=== PATIENT | male | born 1955 ===

== ENCOUNTER 2017-10-13 17:44 | Emergency (ER) | payer MEDICAID ==
[2017-10-13 18:09] VITALS: TEMP 98
[2017-10-13] MEDS ORDERED: TDAP Vaccine 0.5 mL Syr IM ONE (18:55)
--- NOTE | 2017-10-13 18:58 | ED PDOC ---
Arrival/HPI - General Chief Complaint: Trauma Time Seen by Provider: 10/13/17 18:54 Historian: Patient - History of Present Illness Narrative History of Present Illness (Text): 10/13/17 18:55 This 62 yo male presents to this ED c/o left great toe injury x DIRECTOR OF ONCOLOGY. Patient stated while carrying an old heavy TV, accidentally TV dropped on his toe. Denies other complains. Time/Duration: Prior to Arrival Quality: Aching Context: Home Past Medical History - Provider Review Nursing Documentation Reviewed: Yes - Cardiac Hx Cardiac Disorders: Yes Hx Hypertension: Yes - Pulmonary Hx Respiratory Disorders: Yes Hx Asthma: Yes - Neurological Hx Neurological Disorder: No - HEENT Hx HEENT Disorder: No - Renal Hx Renal Disorder: No - Endocrine/Metabolic Hx Endocrine Disorders: No - Hematological/Oncological Hx Blood Disorders: No - Integumentary Hx Dermatological Disorder: No - Musculoskeletal/Rheumatological Hx Musculoskeletal Disorders: No - Gastrointestinal Hx Gastrointestinal Disorders: No - Genitourinary/Gynecological Hx Genitourinary Disorders: No - Psychiatric Hx Psychophysiologic Disorder: No Hx Substance Use: No Family/Social History - Physician Review Nursing Documentation Reviewed: Yes Family/Social History: Other (noncontributory) Smoking Status: Never Smoked Hx Alcohol Use: Yes Frequency of alcohol use: Socially Hx Substance Use: No Allergies/Home Meds Allergies/Adverse Reactions: Allergies No Known Allergies Allergy (Verified 10/13/17 18:09) Home Medications: Home Meds Medication Instructions Recorded Confirmed Gabapentin [Neurontin] 100 mg PO DAILY 10/13/17 10/13/17 Review of Systems - Review of Systems Constitutional: Normal. absent: Fatigue, Weight Change, Fevers, Night Sweats Eyes: Normal ENT: Normal Respiratory: Normal Cardiovascular: Normal Gastrointestinal: Normal Genitourinary Male: Normal Musculoskeletal: Other (toe trauma) Skin: Normal Neurological: Normal Endocrine: Normal Hemo/Lymphatic: Normal Psychiatric: Normal Physical Exam Vital Signs Temp Pulse Resp BP Pulse Ox 10/13/17 18:03 98.0 F 91 H 17 109/74 94 L Temperature: Afebrile Blood Pressure: Normal Pulse: Regular Respiratory Rate: Normal Appearance: Positive for: Well-Appearing, Non-Toxic, Comfortable Pain Distress: None Mental Status: Positive for: Alert and Oriented X 3 - Systems Exam Head: Present: Atraumatic, Normocephalic Mouth: Present: Moist Mucous Membranes Neck: Present: Normal Range of Motion Upper Extremity: Present: Normal Inspection, Normal ROM Lower Extremity: Present: NORMAL PULSES, Neurovascularly Intact, Capillary Refill < 2 s, Other ((+) left great toe swelling, bleeding has stopped, with subungual hematoma.). No: Edema, CALF TENDERNESS Neurological: Present: GCS=15, CN II-XII Intact, Speech Normal Skin: Present: Warm, Dry, Normal Color. No: Rashes Psychiatric: Present: Alert, Oriented x 3, Normal Insight, Normal Concentration Medical Decision Making ED Course and Treatment: 10/13/17 21:49 Re-evaluation. Patient feels better. Discussed results and plan with patient who expresses understanding. All questions answered and there is agreement with the plan to discharge home with instructions. Patient stable for discharge. Return if symptoms persist or worsen. Re-evaluation Time: 21:49 Reassessment Condition: Re-examined, Improved - RAD Interpretation Narrative RAD Interpretations (Text): 10/13/17 21:50 Toe x-rays: (+) fx phalanx Radiology Orders: 10/13/17 18:54 FOOT LEFT GREAT TOE ROUTINE [RAD] Stat - Medication Orders Current Medication Orders: Discontinued Medications Tetanus/Reduced Diphtheria/Acell Pertussis (Boostrix Vaccine Inj) 0.5 ml IM .ONCE ONE Stop: 10/13/17 18:56 Last Admin: 10/13/17 20:13 Dose: 0.5 ml Immunization Registry Document 10/13/17 20:13 NE (Rec: 10/13/17 20:13 NE [id number]) Immunization Registry Consent Date 10/13/17 - Procedure PROCEDURE NOTE (Text): 10/13/17 21:50 e Disposition/Present on Arrival - Present on Arrival Any Indicators Present on Arrival: No History of DVT/PE: No History of Uncontrolled Diabetes: No Urinary Catheter: No History of Decub. Ulcer: No History Surgical Site Infection Following: None - Disposition Have Diagnosis and Disposition been Completed?: Yes Diagnosis: Open fracture of toe of left foot Disposition: HOME/ ROUTINE Disposition Time: 21:51 Patient Plan: Discharge Condition: GOOD Discharge Instructions (ExitCare): Toe Fracture (ED) Additional Instructions: Call non ferrous material handler for follow up visit in 1-2 days. Take medication as instructed. Return to emergency if wound becomes infected. See your private doctor in 2 days for wound recheck Prescriptions: Amoxicillin/Clavulanate [Augmentin 875 MG-125 MG] 1 tab PO BID #20 tab oxyCODONE/Acetaminophen [Percocet 5/325 mg Tab] 1 ea PO TID PRN #12 tab PRN Reason: Pain, Severe (8-10) Referrals: Kulwinder Chávez APN [Primary Care Provider] - Follow up with primary Maddi Hamm DPM [Staff Provider] - Follow up with primary Forms: [employer] (Lebanese)
[2017-10-13] MEDS ORDERED: Amoxicillin-Clav 875-125 mg Tab PO STA (21:49)
[2017-10-13 22:15] VITALS: BP 112/87; PULSE 75; RESP 16; O2SAT 97
--- NOTE | 2017-10-14 09:46 | RAD ---
PROCEDURE: Radiographs of the left great toe. TECHNIQUE:: AP radiograph of the left foot, with oblique and lateral view of the left great toe. COMPARISON: None. FINDINGS: BONES: There is an acute mildly displaced fracture in the tip of the distal phalanx of the great toe. Bone alignment and mineralization are normal. JOINTS: Normal. SOFT TISSUES: There is soft tissue swelling in the great toe. No radiopaque foreign body. OTHER FINDINGS: None. IMPRESSION: Acute mildly displaced fracture in the tip of the distal phalanx of the great toe with surrounding soft tissue swelling.
== END 2017-10-13 22:22 | disposition home or self-care (01) ==
LOC: ED 17:44
DX: S92.422B Displaced fracture of distal phalanx of left great toe, initial encounter for open fracture (principal); W20.8XXA Other cause of strike by thrown, projected or falling object, initial encounter; Y92.009 Unspecified place in unspecified non-institutional (private) residence as the place of occurrence of the external cause; I10 Essential (primary) hypertension; Z23 Encounter for immunization

== ENCOUNTER 2018-03-29 06:36 | Emergency (ER) | payer MEDICAID ==
[2018-03-29 07:01] VITALS: BP 124/86; TEMP 98.1
[2018-03-29] MEDS ORDERED: Albuterol-Ipratrop 3 mg / 0.5 (3 ml) UD IH STA (07:24)
--- NOTE | 2018-03-29 08:20 | ED PDOC ---
Arrival/HPI - History of Present Illness Time/Duration: > week Symptom Course: Unchanged Activities at Onset: Rest Context: Home <Amanda Fisher - Last Filed: 03/29/18 08:13> <Carlos Villatoro DO - Last Filed: 03/29/18 16:40> - General Chief Complaint: ENT Problem Time Seen by Provider: 03/29/18 07:13 - History of Present Illness Narrative History of Present Illness (Text): 03/29/18 08:14 This is a 62 year old male with PMH of hypertension and asthma on albuterol presenting to the ER for nasal congestion x 1 week. Patient admits to associated itchy eyes, runny nose, and unchanged nasal congestion despite use of fluticasone puff use for one week. Patient states his asthma is typically controlled with albuterol, but his current symptoms have not improved. Patient denies chest pain, SOB, fevers, headaches, nausea, vomiting and abdominal pain. (Amanda Fisher) Past Medical History - Provider Review Nursing Documentation Reviewed: Yes - Cardiac Hx Cardiac Disorders: Yes Hx Hypertension: Yes - Pulmonary Hx Respiratory Disorders: Yes Hx Asthma: Yes - Neurological Hx Neurological Disorder: No - HEENT Hx HEENT Disorder: No - Renal Hx Renal Disorder: No - Endocrine/Metabolic Hx Endocrine Disorders: No - Hematological/Oncological Hx Blood Disorders: No - Integumentary Hx Dermatological Disorder: No - Musculoskeletal/Rheumatological Hx Musculoskeletal Disorders: No - Gastrointestinal Hx Gastrointestinal Disorders: No - Genitourinary/Gynecological Hx Genitourinary Disorders: No - Psychiatric Hx Psychophysiologic Disorder: No Hx Substance Use: No <Amanda Fisher - Last Filed: 03/29/18 08:13> Family/Social History - Physician Review Nursing Documentation Reviewed: Yes Family/Social History: Unknown Family HX Smoking Status: Never Smoked Hx Alcohol Use: Yes Hx Substance Use: No <Amanda Fisher - Last Filed: 03/29/18 08:13> Allergies/Home Meds <Amanda Fisher - Last Filed: 03/29/18 08:13> <Carlos Villatoro DO - Last Filed: 03/29/18 16:40> Allergies/Adverse Reactions: Allergies seafood Allergy (Uncoded 03/29/18 07:11) ANAPHYLAXIS Home Medications: Home Meds Medication Instructions Recorded Confirmed Hydrochlorothiazide [Microzide] 25 mg PO DAILY 03/29/18 03/29/18 Lisinopril [Zestril] 10 mg PO DAILY 03/29/18 03/29/18 Review of Systems - Physician Review All systems were reviewed & negative as marked: Yes - Review of Systems Constitutional: Normal Eyes: Normal. absent: Vision Changes ENT: Normal, Rhinorrhea. absent: Hearing Changes, Sore Throat, Epistaxis Respiratory: Normal, Wheezing. absent: SOB, Cough Cardiovascular: Normal. absent: Chest Pain, Palpitations Gastrointestinal: Normal. absent: Abdominal Pain Genitourinary Male: Normal Musculoskeletal: Normal Skin: Normal Neurological: Normal Psychiatric: Normal <Amanda Fisher - Last Filed: 03/29/18 08:13> Physical Exam Vital Signs Reviewed: Yes Temperature: Afebrile Blood Pressure: Normal Pulse: Regular Respiratory Rate: Normal Appearance: Positive for: Well-Appearing, Non-Toxic, Comfortable Pain Distress: None Mental Status: Positive for: Alert and Oriented X 3 - Systems Exam Head: Present: Atraumatic, Normocephalic Pupils: Present: PERRL Extroacular Muscles: Present: EOMI Conjunctiva: Present: Normal Mouth: Present: Moist Mucous Membranes Nose (Internal): Present: Rhinorrhea. No: Purulent Mucous, Epistaxis Neck: Present: Normal Range of Motion Respiratory/Chest: Present: Good Air Exchange, Wheezes. No: Respiratory Distress, Accessory Muscle Use, Tachypneic Cardiovascular: Present: Regular Rate and Rhythm, Normal S1, S2. No: Murmurs Abdomen: No: Tenderness, Distention, Peritoneal Signs Back: Present: Normal Inspection Upper Extremity: Present: Normal Inspection. No: Cyanosis, Edema Lower Extremity: Present: Normal Inspection. No: Edema Neurological: Present: Speech Normal, Motor Func Grossly Intact, Normal Sensory Function Skin: Present: Warm, Dry, Normal Color. No: Rashes Psychiatric: Present: Alert, Oriented x 3, Normal Insight, Normal Concentration <Amanda Fisher - Last Filed: 03/29/18 08:13> <Carlos Villatoro DO - Last Filed: 03/29/18 16:40> Vital Signs Temp Pulse Resp BP Pulse Ox 03/29/18 08:36 84 18 97 03/29/18 06:48 98.1 F 88 17 124/86 98 Medical Decision Making <Amanda Fisher - Last Filed: 03/29/18 08:13> <Carlos Villatoro DO - Last Filed: 03/29/18 16:40> ED Course and Treatment: 03/29/18 08:22 This is a 62 year old male with PMH of hypertension and asthma presenting to the ER for one week history nasal congestion. Differential: seasonal allergies vs asthma Plan: Duonebs Progress: Vitals are stable at this time, patient's symptoms are improved with duonebs. ( Amanda Fisher) A 62 year old male with nasal congestion. In agreement with resident note, which includes further HPI details. Patient was seen and evaluated with resident , came up with plan and treatment together. (Carlos Villatoro DO) - Medication Orders Current Medication Orders: Discontinued Medications Albuterol/Ipratropium (Duoneb 3 Mg/0.5 Mg (3 Ml) Ud) 3 ml IH STAT STA Stop: 03/29/18 07:25 Last Admin: 03/29/18 07:35 Dose: 3 ml - PA / APARTMENT MAINTENANCE / Resident Statement / has reviewed & agrees with the documentation as recorded. MD/ has examined the patient and agrees with the treatment plan. <Amanda Fisher - Last Filed: 03/29/18 08:13> - Scribe Statement The provider has reviewed the documentation as recorded by the Scribe <Carlos Villatoro DO - Last Filed: 03/29/18 16:40> - Scribe Statement Pia Fink Provider Scribe Attestation: All medical record entries made by the Scribe were at my direction and personally dictated by me. I have reviewed the chart and agree that the record accurately reflects my personal performance of the history, physical exam, medical decision making, and the department course for this patient. I have also personally directed, reviewed, and agree with the discharge instructions and disposition. (Carlos Villatoro DO) Disposition/Present on Arrival - Present on Arrival Any Indicators Present on Arrival: No History of DVT/PE: No History of Uncontrolled Diabetes: No Urinary Catheter: No History of Decub. Ulcer: No History Surgical Site Infection Following: None - Disposition Have Diagnosis and Disposition been Completed?: Yes Disposition Time: 08:40 <Amanda Fisher - Last Filed: 07/10/18 08:13> - Disposition Disposition Time: 07:20 <Carlos Villatoro DO - Last Filed: 03/29/18 16:40> - Disposition Diagnosis: Asthma, Seasonal allergies Disposition: HOME/ ROUTINE Condition: IMPROVED Discharge Instructions (ExitCare): Seasonal Allergies in Adults, Asthma, Adult (DC) Additional Instructions: [facility], thank you for letting us take care of you today. Your provider was Carlos Villatoro DO and you were treated for nose problem. The emergency medical care you received today was directed at your acute symptoms. If you were prescribed any medication, please fill it and take as directed. It may take several days for your symptoms to resolve. Return to the Emergency Department if your symptoms worsen, do not improve, or if you have any other problems. Please contact your doctor or call one of the physicians/clinics you have been referred to that are listed on the Patient Visit Information form that is included in your discharge packet. Bring any paperwork you were given at discharge with you along with any medications you are taking to your follow up visit. Our treatment cannot replace ongoing medical care by a primary care provider outside of the emergency department. Thank you for allowing the [facility] team to be part of your care today. Follow up with your primary care doctor in 2-3 days for re-evaluation and further management. Prescriptions: Cetirizine HCl [Zyrtec] 10 mg PO DAILY #30 capsule Fluticasone Propionate [Flovent Hfa] 2 puff IH BID #1 unit Referrals: Kulwinder Chávez APN [Primary Care Provider] - Follow up with primary Forms: [employer] ([place] Citizen)
[2018-03-29 08:38] VITALS: PULSE 84; RESP 18; O2SAT 97
== END 2018-03-29 08:10 | disposition home or self-care (01) ==
LOC: ED 06:36
DX: J45.909 Unspecified asthma, uncomplicated (principal); J30.2 Other seasonal allergic rhinitis; I10 Essential (primary) hypertension

== ENCOUNTER 2018-08-28 06:41 | Emergency (ER) | payer MEDICAID ==
[2018-08-28 06:52] VITALS: BMI 28.1
[2018-08-28 06:54] VITALS: RESP 18
[2018-08-28] MEDS ORDERED: Albuterol 0.5% Inhal Sol (2.5 mg/0.5 ml) UD IH STA (07:12)
--- NOTE | 2018-08-28 07:24 | ED PDOC ---
Arrival/HPI - General Chief Complaint: Cough, Cold, Congestion Time Seen by Provider: 08/28/18 07:00 Historian: Patient - History of Present Illness Narrative History of Present Illness (Text): 08/28/18 07:17 63 yr old male w/ hx of hypertension, asthma p/w nasal congestion, and wheezing / chest congestion. Pt notes nasal congestion 2/2 polyp for 3-4 months and chest congestion / wheezing x3-4d. No prior hx of admission or intubation for asthma. Pt notes current symptoms feels like his previous asthma exacerbation. He notes that he is scheduled for polyp surgery on sep 15 at [place]. He denies any sinus pressure or pain. No change in phonation. No dysphagai or odynophagia. No rash. No chest pressure. No dyspnea on exertion. No orthopnea or PND. No hx of blood clots. No leg swelling. No new medications. No recent ABX. No fever, chills or night sweats No nausea or vomiting No abdominal pain No dark or bloody stool No urinary complaints Past Medical History - Infectious Disease Hx of Infectious Diseases: None - Cardiac Hx Cardiac Disorders: Yes Hx Hypertension: Yes - Pulmonary Hx Respiratory Disorders: Yes Hx Asthma: Yes - Neurological Hx Neurological Disorder: No - HEENT Hx HEENT Disorder: No - Renal Hx Renal Disorder: No - Endocrine/Metabolic Hx Endocrine Disorders: No - Hematological/Oncological Hx Blood Disorders: No - Integumentary Hx Dermatological Disorder: No - Musculoskeletal/Rheumatological Hx Musculoskeletal Disorders: No - Gastrointestinal Hx Gastrointestinal Disorders: No - Genitourinary/Gynecological Hx Genitourinary Disorders: No - Psychiatric Hx Psychophysiologic Disorder: No Hx Substance Use: No Family/Social History Family/Social History: Unknown Family HX Smoking Status: Never Smoked Hx Alcohol Use: Yes Hx Substance Use: No Allergies/Home Meds Allergies/Adverse Reactions: Allergies seafood Allergy (Uncoded 03/29/18 07:11) ANAPHYLAXIS Home Medications: Home Meds Medication Instructions Recorded Confirmed Hydrochlorothiazide [Microzide] 25 mg PO DAILY 03/29/18 03/29/18 Lisinopril [Zestril] 10 mg PO DAILY 03/29/18 03/29/18 Review of Systems - Review of Systems Constitutional: Normal. absent: Fatigue Eyes: Normal. absent: Vision Changes ENT: Sore Throat, Rhinorrhea. absent: Hearing Changes, Tinnitus, TMJ Pain, Voice Changes, Epistaxis, Sinus Congestion Respiratory: SOB, Wheezing. absent: Cough, Sputum Cardiovascular: Normal. absent: Chest Pain, Palpitations, Edema, Orthopnea Gastrointestinal: Normal. absent: Abdominal Pain Genitourinary Male: Normal. absent: Dysuria, Frequency Musculoskeletal: absent: Arthralgias, Back Pain Skin: absent: Rash, Pruritis Neurological: absent: Headache, Dizziness Endocrine: absent: Diaphoresis, Polyuria Psychiatric: absent: Anxiety, Depression Physical Exam Vital Signs Temp Pulse Resp BP Pulse Ox 08/28/18 06:52 98.8 F 83 18 138/99 H 96 Temperature: Afebrile Blood Pressure: Hypertensive Pulse: Regular Respiratory Rate: Normal Appearance: Positive for: Well-Appearing Pain Distress: None Mental Status: Positive for: Alert and Oriented X 3 - Systems Exam Head: Present: Atraumatic, Normocephalic Pupils: Present: PERRL Extroacular Muscles: Present: EOMI Conjunctiva: Present: Normal Ears: Present: Normal Mouth: Present: Moist Mucous Membranes Pharnyx: Present: Normal. No: ERYTHEMA, EXUDATE Nose (External): Present: Atraumatic Nose (Internal): Present: No Active Bleeding, Clear Mucous, Rhinorrhea. No: Septal Deviation, Septal Hematoma Neck: Present: Normal Range of Motion. No: Meningeal Signs, MIDLINE TENDERNESS Respiratory/Chest: Present: Good Air Exchange, Wheezes (mild, at bases). No: Respiratory Distress, Accessory Muscle Use, Decreased Breath Sounds, Rales, Retracting, Rhonchi, Tachypneic Cardiovascular: Present: Regular Rate and Rhythm, Normal S1, S2, Peripheal Pulses Present. No: Murmurs, Tachycardic, Bradycardic, Rub, Gallop Abdomen: No: Tenderness, Distention Back: Present: Normal Inspection. No: CVA Tenderness Upper Extremity: Present: Normal Inspection, Normal ROM, NORMAL PULSES, Capillary Refill < 2s. No: Cyanosis, Edema Lower Extremity: Present: Normal Inspection, NORMAL PULSES, Normal ROM, Capillary Refill < 2 s. No: Edema, CALF TENDERNESS Neurological: Present: GCS=15, CN II-XII Intact, Speech Normal Skin: Present: Warm, Dry Psychiatric: Present: Alert, Oriented x 3, Normal Insight, Normal Affect Medical Decision Making ED Course and Treatment: 08/28/18 07:27 Well appearing 63 yr old male w/ hx of asthma, nasal polyp p/w chest and nasal congestion. No sinus pressure on exam. Noted R polyp, No septal hematoma. No abscess or fluctuant mass noted in nasal passage. Lungs with mild wheezes. Likely asthma exacerbation vs PNA vs bronchitis. Will seek imaging and labs. EK, NSR, no stemi 08/28/18 09:19 XR unremarkable labs largely unremarkable troponin negative Likely Asthma exacerbation w/ possible bronchitis LS imroved: CTA b/l no wheezes on exam. Pt in NAD noted improvement as well will d/c home with abx, asthma rx, follow up and return indications. Pt is agreeable to plan. - Lab Interpretations I have reviewed the lab results: Yes - RAD Interpretation Radiology Orders: 08/28/18 07:12 CHEST TWO VIEWS (PA/LAT) [RAD] Stat - Medication Orders Current Medication Orders: Albuterol Sulfate (Albuterol 0.5% Inhal Susi (2.5 Mg/0.5 Ml) Ud) 2.5 mg IH STAT STA Stop: 08/28/18 07:13 Methylprednisolone (Solu-Medrol) 125 mg IVP STAT STA Stop: 08/28/18 07:14 Disposition/Present on Arrival - Present on Arrival Any Indicators Present on Arrival: No History of DVT/PE: No History of Uncontrolled Diabetes: No Urinary Catheter: No History of Decub. Ulcer: No History Surgical Site Infection Following: None - Disposition Have Diagnosis and Disposition been Completed?: Yes Diagnosis: Asthma, Bronchitis Disposition: HOME/ ROUTINE Disposition Time: 09:21 Condition: GOOD Discharge Instructions (ExitCare): Acute Bronchitis, Asthma, Adult (DC) Additional Instructions: [facility], thank you for letting us take care of you today. Your provider was Mike Velasquez and you were treated for CHEST PAIN/TIGHTENING. The emergency medical care you received today was directed at your acute symptoms. If you were prescribed any medication, please fill it and take as directed. It may take several days for your symptoms to resolve. Return to the Emergency Department if your symptoms worsen, do not improve, or if you have any other problems. Please contact your doctor or call one of the physicians/clinics you have been referred to that are listed on the Patient Visit Information form that is included in your discharge packet. Bring any paperwork you were given at discharge with you along with any medications you are taking to your follow up visit. Our treatment cannot replace ongoing medical care by a primary care provider outside of the emergency department. Thank you for [facility] the [facility] to be part of your care today. If you had an X-Ray or CT scan: A Radiologist will review the ED reading if any change in treatment is needed we will contact you. If you had a blood, urine, or wound culture: It will take several days for the results, if any change in treatment is needed we will contact you. If you had an STI test: It will take 48 hours for the results. Please call after 1 week if you have not heard back. Prescriptions: Albuterol HFA [Ventolin HFA 90 mcg/actuation (8 g)] 1 puff IH Q6H PRN 90 Days #1 inhaler PRN Reason: Shortness Of Breath Azithromycin [Z-Juan Luis] 250 mg PO DAILY #6 tab Prednisone [Deltasone] 40 mg PO DAILY 5 Days #10 tablet Referrals: [facility] [[place]] - Follow up with primary [employer] Erendira Pappas [Outside] - Follow up with primary Richy Fulton MD [Staff Provider] - Follow up with primary Forms: [employer] ([place])
[2018-08-28 07:55] LABS: BASO # 0.05 K/mm3 (0.0-2.0); BASO % 0.7 % (0.0-3.0); EOS # 0.8 (0.0-0.7); EOS % 10.3 % (1.5-5.0); GRAN % 66.5 % (50.0-68.0); LYMPH # 1.2 (1.2-3.4); LYMPH % 16.5 % (22.0-35.0); MEAN CELL VOLUME 86.7 fl (80.0-105.0); MEAN CORPUSCULAR HEMOGLOBIN 29.5 pg (25.0-35.0); MEAN PLATELET VOLUME 9.9 fl (7.0-11.0); MONO # 0.5 (0.1-0.6); RBC 4.75 10^6/uL (3.5-6.1); RED CELL DISTRIBUTION WIDTH 12.5 % (11.5-14.5); WHITE BLOOD COUNT 7.5 10^3/uL (4.5-11.0)
[2018-08-28 08:31] LABS: ALBUMIN 3.7 g/dL (3.0-4.8); ALT/SGPT 25 U/L (7-56); AST/SGOT 24 U/L (17-59); BLOOD UREA NITROGEN 19 mg/dL (7-21); CALCIUM 9.1 mg/dL (8.4-10.5); GFR NON-AFRICAN AMERICAN > 60
[2018-08-28 08:35] LABS: INFLUENZA A B NEGATIVE FOR FLU A/B (NEGATIVE)
--- NOTE | 2018-08-28 08:39 | CARD ---
APPROVED REPORT Date of service: 08/28/2018 EKG Measurement Heart [id number] <Conclusion> Normal sinus rhythm Left axis deviation Incomplete right bundle branch block Abnormal ECG
[2018-08-28 08:40] LABS: TROPONIN I < 0.01 ng/mL
[2018-08-28] MEDS ORDERED: Albuterol-Ipratrop 3 mg / 0.5 (3 ml) UD IH STA (08:48)
[2018-08-28 09:42] VITALS: BP 123/59; PULSE 76; TEMP 98; O2SAT 99
--- NOTE | 2018-08-28 09:48 | RAD ---
Date of service: 08/28/2018 HISTORY: chest congestion COMPARISON: No prior. TECHNIQUE: Chest PA and lateral FINDINGS: LUNGS: No active pulmonary disease. PLEURA: No significant pleural effusion identified. No pneumothorax apparent. CARDIOVASCULAR: No aortic atherosclerotic calcification present. Normal cardiac size. No pulmonary vascular congestion. OSSEOUS STRUCTURES: No significant abnormalities. VISUALIZED UPPER ABDOMEN: Normal. OTHER FINDINGS: None. IMPRESSION: No active disease.
== END 2018-08-28 09:40 | disposition home or self-care (01) ==
LOC: ED 06:41
DX: J45.909 Unspecified asthma, uncomplicated (principal); I10 Essential (primary) hypertension
CPT/HCPCS: 71046; 80053; 84484; 85025; 87070; 87430; 87804; 93005; 94640; 96374; 99283; J2930

== ENCOUNTER 2019-02-02 05:57 | Observation (INO) | payer MEDICAID ==
--- NOTE | 2019-02-02 06:07 | ED PDOC ---
Arrival/HPI - General Time Seen by Provider: 02/02/19 06:00 Historian: Patient - History of Present Illness Narrative History of Present Illness (Text): 02/02/19 06:04 Noe Jamison is a 63 year old male, whose past medical history includes asthma and hypertension, who presents to the ED complaining of shortness of breath. Patient reports associated wheezing and back pain. Patient states symptoms are consistent with his usual asthma symptoms. Patient denies any tobacco use, fever, chills, chest pain, nausea, vomiting, neck pain, headache, dizziness, or any other complaints. Symptom Onset: Gradual Symptom Course: Unchanged Activities at Onset: Light Context: Home Past Medical History - Provider Review Nursing Documentation Reviewed: Yes - Infectious Disease Hx of Infectious Diseases: None - Cardiac Hx Cardiac Disorders: Yes Hx Hypertension: Yes - Pulmonary Hx Respiratory Disorders: Yes Hx Asthma: Yes - Neurological Hx Neurological Disorder: No - HEENT Hx HEENT Disorder: No - Renal Hx Renal Disorder: No - Endocrine/Metabolic Hx Endocrine Disorders: No - Hematological/Oncological Hx Blood Disorders: No - Integumentary Hx Dermatological Disorder: No - Musculoskeletal/Rheumatological Hx Musculoskeletal Disorders: No - Gastrointestinal Hx Gastrointestinal Disorders: No - Genitourinary/Gynecological Hx Genitourinary Disorders: No - Psychiatric Hx Psychophysiologic Disorder: No Hx Substance Use: No Family/Social History - Physician Review Nursing Documentation Reviewed: Yes Family/Social History: Unknown Family HX Smoking Status: Never Smoked Hx Alcohol Use: Yes Hx Substance Use: No Allergies/Home Meds Allergies/Adverse Reactions: Allergies seafood Allergy (Uncoded 03/29/18 07:11) ANAPHYLAXIS Home Medications: Home Meds Medication Instructions Recorded Confirmed Hydrochlorothiazide [Microzide] 25 mg PO DAILY 03/29/18 03/29/18 Lisinopril [Zestril] 10 mg PO DAILY 03/29/18 03/29/18 Review of Systems - Physician Review All systems were reviewed & negative as marked: Yes - Review of Systems Constitutional: Normal. absent: Fevers Eyes: Normal ENT: Normal Respiratory: SOB, Wheezing. absent: Cough Cardiovascular: Normal. absent: Chest Pain Gastrointestinal: Normal. absent: Abdominal Pain, Diarrhea, Nausea, Vomiting Genitourinary Male: Normal. absent: Dysuria, Frequency, Hematuria, Urinary Output Changes Musculoskeletal: Back Pain. absent: Neck Pain Skin: Normal. absent: Rash Neurological: Normal. absent: Headache, Dizziness Endocrine: Normal Hemo/Lymphatic: Normal Psychiatric: Normal Physical Exam Vital Signs Reviewed: Yes Temperature: Afebrile Respiratory Rate: Normal Appearance: Positive for: Well-Appearing, Non-Toxic, Comfortable Pain Distress: None Mental Status: Positive for: Alert and Oriented X 3 - Systems Exam Head: Present: Atraumatic, Normocephalic Pupils: Present: PERRL Extroacular Muscles: Present: EOMI Conjunctiva: Present: Normal Mouth: Present: Moist Mucous Membranes Neck: Present: Normal Range of Motion Respiratory/Chest: Present: Wheezes (Wheezing bilaterally). No: Respiratory Distress, Accessory Muscle Use Cardiovascular: Present: Regular Rate and Rhythm, Normal S1, S2. No: Murmurs Abdomen: No: Tenderness, Distention, Peritoneal Signs Back: Present: Normal Inspection Upper Extremity: Present: Normal Inspection. No: Cyanosis, Edema Lower Extremity: Present: Normal Inspection. No: Edema Neurological: Present: GCS=15, CN II-XII Intact, Speech Normal Skin: Present: Warm, Dry, Normal Color. No: Rashes Psychiatric: Present: Alert, Oriented x 3, Normal Insight, Normal Concentration Medical Decision Making ED Course and Treatment: 02/02/19 06:04 Impression: 63 year old male complaining of shortness of breath and wheezing. Plan: -- EKG -- Chest X-ray -- Duoneb -- Solu-medrol -- Reassess and disposition Prior Visits: Notes and results from previous visits were reviewed. Progress Notes: - EKG Interpretation EKG Interpretation (Text): 02/02/19 06:17 nsr rate 9 icrbbb no change from previous - Transfer of Care Patient signed out to Dr:: yue re eval and dispo - Scribe Statement The provider has reviewed the documentation as recorded by the [place] Provider Scribe Attestation: All medical record entries made by the Scribe were at my direction and personally dictated by me. I have reviewed the chart and agree that the record accurately reflects my personal performance of the history, physical exam, medical decision making, and the department course for this patient. I have also personally directed, reviewed, and agree with the discharge instructions and disposition. Disposition/Present on Arrival - Present on Arrival Any Indicators Present on Arrival: No History of DVT/PE: No History of Uncontrolled Diabetes: No Urinary Catheter: No History Surgical Site Infection Following: None - Disposition Have Diagnosis and Disposition been Completed?: Yes Diagnosis: Asthma exacerbation Disposition: HOSPITALIZED Disposition Time: 07:00 Condition: FAIR
[2019-02-02] MEDS: Albuterol-Ipratrop 3 mg / 0.5 (3 ml) UD IH SCH ×4 (06:17→20:01)
[2019-02-02 06:54] LABS: BASO # 0.08 K/mm3 (0.0-2.0); BASO % 0.9 % (0.0-3.0); EOS # 0.8 (0.0-0.7); EOS % 9.4 % (1.5-5.0); HEMOGLOBIN 14.7 g/dL (14.0-18.0); LYMPH # 2.5 (1.2-3.4); LYMPH % 28.5 % (22.0-35.0); MEAN CORPUSCULAR HEMOGLOBIN 28.5 pg (25.0-35.0); MEAN CORPUSCULAR HGB CONC 33.1 g/dl (31.0-37.0); MEAN PLATELET VOLUME 10.3 fl (7.0-11.0); MONO # 0.5 (0.1-0.6); MONO % 6.1 % (1.0-6.0); RBC 5.16 10^6/uL (3.5-6.1); RED CELL DISTRIBUTION WIDTH 13.3 % (11.5-14.5); WHITE BLOOD COUNT 8.9 10^3/uL (4.5-11.0)
[2019-02-02 07:01] LABS: ALB/GLOB RATIO 1.3 (1.1-1.8); ALBUMIN 4.2 g/dL (3.0-4.8); ALT/SGPT 29 U/L (7-56); AST/SGOT 32 U/L (17-59); BLOOD UREA NITROGEN 19 mg/dL (7-21); CALCIUM 9.2 mg/dL (8.4-10.5); GFR NON-AFRICAN AMERICAN > 60
--- NOTE | 2019-02-02 07:09 | ED PDOC ---
Physical Exam Vital Signs Pulse Resp BP Pulse Ox 02/02/19 06:11 17 93 L 02/02/19 06:04 100 H 20 147/90 91 L Medical Decision Making ED Course and Treatment: 02/02/19 07:02 Case endorsed to me by Dr. Sun. Will reevaluate, blood work pending 02/02/19 07:38 On reassessment, patient with significant wheezing. States feels somewhat better but still having much difficulty breathing. Discussed case with Dr. Hinds (hospitalist) who accepts patient for observation. - Lab Interpretations Lab Results: Total Bilirubin 0.8 mg/dL (0.2-1.3) 02/02/19 06:30 AST 32 U/L (17-59) 02/02/19 06:30 ALT 29 U/L (7-56) 02/02/19 06:30 Alkaline Phosphatase 119 U/L (38-126) 02/02/19 06:30 Total Protein 7.5 g/dL (5.8-8.3) 02/02/19 06:30 Albumin 4.2 g/dL (3.0-4.8) 02/02/19 06:30 Globulin 3.3 gm/dL 02/02/19 06:30 Albumin/Globulin Ratio 1.3 (1.1-1.8) 02/02/19 06:30 - RAD Interpretation Radiology Orders: 02/02/19 06:04 CHEST PORTABLE [RAD] Stat - Medication Orders Current Medication Orders: Discontinued Medications Albuterol/Ipratropium (Duoneb 3 Mg/0.5 Mg (3 Ml) Ud) 3 ml IH Q15M [facility] Stop: 02/02/19 06:46 Last Admin: 02/02/19 06:58 Dose: 3 ml Methylprednisolone (Solu-Medrol) 125 mg IVP ONCE ONE Stop: 02/02/19 06:05 Last Admin: 02/02/19 06:18 Dose: 125 mg IVP Administration Document 02/02/19 06:18 EB (Rec: 02/02/19 06:18 EB [id number]) Charges for Administration # of IVP Administrations 1 - Scribe Statement The provider has reviewed the documentation as recorded by the Kikiibtory Das All medical record entries made by the Scribe were at my direction and personally dictated by me. I have reviewed the chart and agree that the record accurately reflects my personal performance of the history, physical exam, medical decision making, and the department course for this patient. I have also personally directed, reviewed, and agree with the discharge instructions and disposition. Disposition/Present on Arrival - Present on Arrival Any Indicators Present on Arrival: No History of DVT/PE: No History of Uncontrolled Diabetes: No Urinary Catheter: No History of Decub. Ulcer: No History Surgical Site Infection Following: None - Disposition Have Diagnosis and Disposition been Completed?: Yes Diagnosis: Asthma exacerbation Disposition: HOSPITALIZED Disposition Time: 07:38 Patient Plan: Observation, Telemetry Condition: FAIR Referrals: Kulwinder Chávez APN [Primary Care Provider] - Follow up with primary Forms: [employer] (Hebrew)
[2019-02-02 07:12] LABS: TROPONIN I < 0.01 ng/mL
[2019-02-02] MEDS ORDERED: Albuterol-Ipratrop 3 mg / 0.5 (3 ml) UD IH PRN (09:39)
--- NOTE | 2019-02-02 10:19 | RAD ---
Date of service: 02/02/2019 HISTORY: sob COMPARISON: 08/28/2018 TECHNIQUE: 1 view obtained. FINDINGS: LUNGS: No consolidation. Patchy emphysematous cystic like changes along each perihilar location are noted-probably present previously albeit increased in current conspicuity. PLEURA: No significant pleural effusion identified, no pneumothorax apparent. CARDIOVASCULAR: No aortic atherosclerotic calcification present. Normal cardiac size. No pulmonary vascular congestion. OSSEOUS STRUCTURES: No significant abnormalities. VISUALIZED UPPER ABDOMEN: Normal. OTHER FINDINGS: None. IMPRESSION: No interval acute cardiopulmonary pathology noted. Other findings as above.
--- NOTE | 2019-02-02 11:10 | CT ---
Date of service: 02/02/2019 PROCEDURE: CT Chest without contrast HISTORY: r/o hypersensitivity pneumonitis COMPARISON: None available. TECHNIQUE: Contiguous axial images were obtained through the chest without intravenous contrast enhancement. Sagittal and coronal reconstructions were performed. Radiation dose: Total exam DLP = 525.56 mGy-cm. This CT exam was performed using one or more of the following dose reduction techniques: Automated exposure control, adjustment of the mA and/or kV according to patient size, and/or use of iterative reconstruction technique. FINDINGS: LUNGS: There is a small ground-glass infiltrate or scar adjacent to the pleural surface in the left upper lobe. The lungs are otherwise clear. MEDIASTINUM: Unremarkable thoracic aorta. No aneurysm. Normal sized heart. Main pulmonary artery unremarkable. No vascular congestion. No lymphadenopathy. Aortic calcification. PLEURA: No pleural fluid. No pneumothorax. BONES: No fracture. No destructive lesion. UPPER ABDOMEN: Grossly unremarkable. OTHER FINDINGS: None. IMPRESSION: There is a small ground-glass infiltrate or scar adjacent to the pleural surface in the left upper lobe. The lungs are otherwise clear.
--- NOTE | 2019-02-02 11:40 | CP.PCM.HP ---
<Ronny Rosenbaum - Last Filed: 02/02/19 11:27> History of Present Illness - History of Present Illness History of Present Illness: Hospitalist Service H&P Ronny Robi DO, PGY-3 CC: Worsening shortness of breath x1 week This is a 63 yo M with PMH of HTN, Asthma, and seasonal allergies who presented to [facility] with complaint of worsening shortness of breath and wheezing x1 week. Patient reports no relief with use of him home Pro-air inhaler, and he has not had the supplies to use his Fluticasone nebs in weeks. Reports well controlled prior to this, but does experience 2-3 exacerbations per year, usually around allergy season of spring-summer. Symptoms of exacerbations were previously resolved with trips to the ED and steroids/Duonebs, but did not resolve completely this time, so patient was recommended for admission. On exam, patient is resting comfortably in bed, not overtly dyspnic or audibly wheezing, no dyspnea with speech. Admits to shortness of breath (improved but not resolved after treatments) and wheezing. Denies productive cough, fevers, chills, sick contacts, chest pain, changes in voice, sensation of choking, palpitations, dizziness, syncope/near-syncope, abd pain, nausea, emesis, diarrhea, focal or global weakness, dysuria, hematuria. He was born in [facility], emigrated to [place] more than 25 yrs ago, and denies any possible TB exposures. Denies sick contacts. 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 Has never undergoing formal allergy testing, but reports he did seen a "lung specialist" 9 months ago, and underwent tests that likely were PFTs (he doesn't know the results). Has not followed up since. Workup in ED reviewed: CXR notable for increased (as compared to prior from Aug 2018) patchy emphysematous cystic-like changes along perihilar locations. EKG notable for incomplete RBBB, but also present on prior EKG (Aug 2018), appears unchanged. 12 system ROS reviewed and negative, except as above. PMH: as above PSH: polypectomy at [facility] Aug 2018 Fam Hx: pt is not aware of any family history Soc Hx: denies tobacco/illicits/IVDA, admits to social EtOH (1-2 times per month, denies binging episodes) PMD: Dr. Chávez Present on Admission - Present on Admission Any Indicators Present on Admission: No History of DVT/PE: No History of Uncontrolled Diabetes: No Review of Systems - Review of Systems All systems: reviewed and no additional remarkable complaints except (as per HPI) Past Patient History - Infectious Disease Hx of Infectious Diseases: None - Past Social History Smoking Status: Never Smoked - CARDIAC Hx Cardiac Disorders: Yes Hx Hypertension: Yes - PULMONARY Hx Respiratory Disorders: Yes Hx Asthma: Yes - NEUROLOGICAL Hx Neurological Disorder: No - HEENT Hx HEENT Problems: No - RENAL Hx Chronic Kidney Disease: No - ENDOCRINE/METABOLIC Hx Endocrine Disorders: No - HEMATOLOGICAL/ONCOLOGICAL Hx Blood Disorders: No - INTEGUMENTARY Hx Dermatological Problems: No - MUSCULOSKELETAL/RHEUMATOLOGICAL Hx Musculoskeletal Disorders: No - GASTROINTESTINAL Hx Gastrointestinal Disorders: No - GENITOURINARY/GYNECOLOGICAL Hx Genitourinary Disorders: No - PSYCHIATRIC Hx Psychophysiologic Disorder: No Hx Substance Use: No - SURGICAL HISTORY Hx Surgeries: No - ANESTHESIA Hx Anesthesia: No Hx Anesthesia Reactions: No Hx Malignant Hyperthermia: No Meds Home Medications: Home Medication List Medication Instructions Recorded Confirmed Type Albuterol/Ipratropium [Duoneb 3 3 ml IH [id number] neb 02/03/19 Rx mg/0.5 mg (3 ml) UD] Fluticasone Propionate [Flovent 2 puff IH BID #5 unit 02/03/19 Rx Hfa] Loratadine [Claritin] 10 mg PO DAILY #30 tab 02/03/19 Rx Methylprednisolone [Medrol Dose 4 mg PO DAILY #21 mg 02/03/19 Rx Pack (21 tabs)] Montelukast [Singulair] 10 mg PO HS #30 tab 02/03/19 Rx Allergies/Adverse Reactions: Allergies Allergy/AdvReac Type Severity Reaction Status Date / Time seafood Allergy ANAPHYLAXIS Uncoded 03/29/18 07:11 Physical Exam - Constitutional Appears: Non-toxic, No Acute Distress - Head Exam Head Exam: ATRAUMATIC, NORMAL INSPECTION, NORMOCEPHALIC - Eye Exam Eye Exam: EOMI, Normal appearance. absent: Conjunctival injection, Scleral icterus Pupil Exam: absent: Irregular, Unequal - ENT Exam ENT Exam: Mucous Membranes Moist - Neck Exam Neck exam: Positive for: Full Rom, Normal Inspection. Negative for: Lymphadenopathy, Thyromegaly - Respiratory Exam Respiratory Exam: Wheezes (diffuse moderate expiratory wheezing in all owens), NORMAL BREATHING PATTERN. absent: Accessory Muscle Use, Chest Wall Tenderness, Decreased Breath Sounds, Clear to Auscultation Bilateral, Rales, Rhonchi, Respiratory Distress, Stridor - Cardiovascular Exam Cardiovascular Exam: REGULAR RHYTHM, RRR, +S1, +S2. absent: Bradycardia, Tachycardia, Irregular Rhythm, JVD, +S4 - GI/Abdominal Exam GI & Abdominal Exam: Normal Bowel Sounds, Soft. absent: Diminished Bowel Sounds, Distended, Firm, Guarding, Hyperactive Bowel Sounds, Hypoactive Bowel Sounds, Rigid, Tenderness - Extremities Exam Extremities exam: Positive for: normal capillary refill, normal inspection, pedal pulses present. Negative for: calf tenderness, joint swelling, pedal edema, tenderness - Neurological Exam Additional comments: awake and alert, moving all extremities spontaneously and on command motor grossly intact and equal bilaterally, no gross deficit appreciated - Psychiatric Exam Psychiatric exam: Normal Affect, Normal Mood - Skin Skin Exam: Dry, Intact, Normal Color, Warm Results - Vital Signs Recent Vital Signs: Last Vital Signs Temp Pulse 84 02/02/19 09:05 Resp 19 02/02/19 09:05 BP 148/87 02/02/19 09:05 Pulse Ox 96 02/02/19 09:05 - Labs Result Diagrams: 02/02/19 06:30 02/02/19 06:30 Labs: Laboratory Results - last 24 hr 02/02/19 02/02/19 06:30 06:30 WBC 8.9 RBC 5.16 Hgb 14.7 Hct 44.4 MCV 86.0 MCH 28.5 MCHC 33.1 RDW 13.3 Plt Count 275 MPV 10.3 Neut % (Auto) 55.1 Lymph % (Auto) 28.5 [place]hel % (Auto) 6.1 H Eos % (Auto) 9.4 H Baso % (Auto) 0.9 Lymph # (Auto) 2.5 [place] # (Auto) 0.5 Eos # (Auto) 0.8 H Baso # (Auto) 0.08 Absolute Neuts (auto) 4.89 Sodium 140 Potassium 3.4 L Chloride 104 Carbon Dioxide 28 Anion Gap 13 BUN 19 Creatinine 0.9 Est GFR ( Amer) > 60 Est GFR (Non-Af Amer) > 60 Random Glucose 110 Calcium 9.2 Total Bilirubin 0.8 AST 32 ALT 29 Alkaline Phosphatase 119 Troponin I < 0.01 Total Protein 7.5 Albumin 4.2 Globulin 3.3 Albumin/Globulin Ratio 1.3 Assessment & Plan - Assessment and Plan (Free Text) Assessment: This is a 63 yo M with PMH of HTN, Asthma, and seasonal allergies who presented to [facility] with complaint of worsening shortness of breath and wheezing x1 week. He is being admitted for asthma exacerbation, not fully relieved with IV steroids and Duonebs. Plan: 1) Worsening shortness of breath x1 week ddx: asthma exacerbation vs URI vs seasonal allergies vs 2/2 environmental exposures, r/o ACS 2) HTN 3) Hx asthma 4) Seasonal allergies 5) Questionable medication compliance -CXR notable for patchy emphysematous cystic-like changes, increased since last CXR 6 months prior -Given persistent environmental exposures at work (which do worsen his symptoms), intermittent respiratory protection (wears mask SOMETIMES), and unusual imaging findings, concern for hypersensitivity pneumonitis High res Chest CT ordered, f/u -Treating for likely asthma exacerbation Received solumedrol 125mg IV x1 and Duonebs x3 in ED with some improvement Continue Nebs q6 alia/q2 prn, solumedrol 40mg IV daily (will convert to PO prednisone prior to d/c) Continue home allison Was previously on nebulized fluticasone, ran out of supplies; will start on Budesonide BID while inpatient -Claritin for seasonal allergies -Continue home Lisinopril and HCTZ for HTN -Trop x1 negative, and EKG unchanged from prior, but will cycle trops q8 x2 and repeat EKG in AM to r/o ACS -No leukocytosis, afebrile, no other symptoms suggestive of infectious etiology, so will defer abx at this time Patient seen, reviewed, and discussed with attending, Dr. Hinds. <Bennett Hinds - Last Filed: 02/03/19 18:31> Results - Vital Signs Recent Vital Signs: Last Vital Signs Temp 97.3 F L 02/02/19 21:22 Pulse 99 H 02/02/19 21:22 Resp 20 02/02/19 21:22 BP 128/85 02/03/19 11:00 Pulse Ox 98 02/02/19 21:22 - Labs Result Diagrams: 02/03/19 06:30 02/03/19 06:30 Labs: Laboratory Results - last 24 hr 02/02/19 02/03/19 02/03/19 21:56 05:27 06:30 WBC 10.3 RBC 5.19 Hgb 14.6 Hct 44.2 MCV 85.2 MCH 28.1 MCHC 33.0 RDW 13.2 Plt Count 288 MPV 10.4 Neut % (Auto) 86.6 H Lymph % (Auto) 10.4 L Bethel % (Auto) 3.0 Eos % (Auto) 0.0 L Baso % (Auto) 0.0 Lymph # (Auto) 1.1 L [place] # (Auto) 0.3 Eos # (Auto) 0.0 Baso # (Auto) 0.00 Absolute Neuts (auto) 8.94 H Sodium Potassium Chloride Carbon Dioxide Anion Gap BUN Creatinine Est GFR ( Amer) Est GFR (Non-Af Amer) Random Glucose Calcium Phosphorus Magnesium Total Bilirubin AST ALT Alkaline Phosphatase Troponin I < 0.01 Total Protein Albumin Globulin Albumin/Globulin Ratio Procalcitonin < 0.05 L 02/03/19 06:30 WBC RBC Hgb Hct MCV MCH MCHC RDW Plt Count MPV Neut % (Auto) Lymph % (Auto) Bethel % (Auto) Eos % (Auto) Baso % (Auto) Lymph # (Auto) [place]hel # (Auto) Eos # (Auto) Baso # (Auto) Absolute Neuts (auto) Sodium 143 Potassium 3.9 Chloride 104 Carbon Dioxide 28 Anion Gap 15 BUN 19 Creatinine 0.7 L Est GFR ( Amer) > 60 Est GFR (Non-Af Amer) > 60 Random Glucose 141 H Calcium 9.8 Phosphorus 3.1 Magnesium 2.2 Total Bilirubin 0.5 AST 36 ALT 28 Alkaline Phosphatase 106 Troponin I Total Protein 7.8 Albumin 4.4 Globulin 3.4 Albumin/Globulin Ratio 1.3 Procalcitonin Attending/Attestation - Attestation I have personally seen and examined this patient.: Yes I have fully participated in the care of the patient.: Yes I have reviewed all pertinent clinical information: Yes Notes (Text): Attending note; Patient seen and examined with resident in ER. Patient is alert and awake. Complaining of cough and shortness of breath. Patient has nasal congestion. Denies any fevers, chills Patient is a 63-year-old male with PMH of HTN, Asthma, and seasonal allergies who presented to [facility] with complaint of worsening shortness of breath and wheezing x1 week. 1. Acute asthma exacerbation; patient has significant allergic component. Started on IV Solu-Medrol, DuoNeb and Pulmicort. Monitor oxygen saturation closely. 2. Hypertension; continue hydro-thiazide and lisinopril. 3. Seasonal allergies; continue cetirizine and Singulair . Patient will be monitored closely. Patient is strongly advised to Avoid allergens up with pulmonary as outpatient. Upon discharge the patient will follow up with PMD Dr. Chávez. 02/03/19 18:30 02/03/19 18:31
[2019-02-02] MEDS ORDERED: Potassium Chloride 20 mEq ER Tab PO ONE (16:24)
--- NOTE | 2019-02-02 16:50 | CARD ---
APPROVED REPORT Date of service: 02/02/2019 EKG Measurement Heart [id number] <Conclusion> Normal sinus rhythm Left axis deviation Incomplete right bundle branch block Abnormal ECG
[2019-02-02 16:52] VITALS: RESP 20; BMI 29.7
[2019-02-02] MEDS: Budesonide 0.25 mg/2 ml Inhal Susp UD IH SCH (20:01)
[2019-02-02] MEDS: MethylPREDNISolone 40 mg Vial IVP SCH (21:14)
[2019-02-02 21:26] VITALS: PULSE 99; TEMP 97.3; O2SAT 98
[2019-02-03] MEDS: Albuterol-Ipratrop 3 mg / 0.5 (3 ml) UD IH SCH ×2 (01:37→07:51)
[2019-02-03 07:06] LABS: ALB/GLOB RATIO 1.3 (1.1-1.8); ALBUMIN 4.4 g/dL (3.0-4.8); ALT/SGPT 28 U/L (7-56); AST/SGOT 36 U/L (17-59); BLOOD UREA NITROGEN 19 mg/dL (7-21); CALCIUM 9.8 mg/dL (8.4-10.5); GFR NON-AFRICAN AMERICAN > 60; HEMOGLOBIN 14.6 g/dL (14.0-18.0); LYMPH # 1.1 (1.2-3.4); LYMPH % 10.4 % (22.0-35.0); MEAN CELL VOLUME 85.2 fl (80.0-105.0); MEAN CORPUSCULAR HEMOGLOBIN 28.1 pg (25.0-35.0); MEAN PLATELET VOLUME 10.4 fl (7.0-11.0); MONO # 0.3 (0.1-0.6); RBC 5.19 10^6/uL (3.5-6.1); RED CELL DISTRIBUTION WIDTH 13.2 % (11.5-14.5); WHITE BLOOD COUNT 10.3 10^3/uL (4.5-11.0)
[2019-02-03] MEDS: Budesonide 0.25 mg/2 ml Inhal Susp UD IH SCH (07:51)
[2019-02-03] MEDS ORDERED: MethylPREDNISolone 40 mg Vial IVP SCH (10:00)
[2019-02-03 11:01] VITALS: BP 128/85
[2019-02-03] MEDS: MethylPREDNISolone 40 mg Vial IVP SCH (11:01)
--- NOTE | 2019-02-03 17:06 | CP.PCM.DIS ---
<Jose De Jesus Flores - Last Filed: 02/03/19 16:56> Provider - Provider Date of Admission: 02/02/19 07:37 Attending physician: Bnenett Hinds MD Primary care physician: Kulwinder Chávez APN Time Spent in preparation of Discharge (in minutes): 45 Hospital Course - Lab Results Lab Results: Most Recent Lab Values WBC 10.3 10^3/uL (4.5-11.0) 02/03/19 06:30 RBC 5.19 10^6/uL (3.5-6.1) 02/03/19 06:30 Hgb 14.6 g/dL (14.0-18.0) 02/03/19 06:30 Hct 44.2 % (42.0-52.0) 02/03/19 06:30 MCV 85.2 fl (80.0-105.0) 02/03/19 06:30 MCH 28.1 pg (25.0-35.0) 02/03/19 06:30 MCHC 33.0 g/dl (31.0-37.0) 02/03/19 06:30 RDW 13.2 % (11.5-14.5) 02/03/19 06:30 Plt Count 288 10^3/uL (120.0-450.0) 02/03/19 06:30 MPV 10.4 fl (7.0-11.0) 02/03/19 06:30 Neut % (Auto) 86.6 % (50.0-68.0) H 02/03/19 06:30 Lymph % (Auto) 10.4 % (22.0-35.0) L 02/03/19 06:30 Wood % (Auto) 3.0 % (1.0-6.0) 02/03/19 06:30 Eos % (Auto) 0.0 % (1.5-5.0) L 02/03/19 06:30 Baso % (Auto) 0.0 % (0.0-3.0) 02/03/19 06:30 Lymph # (Auto) 1.1 (1.2-3.4) L 02/03/19 06:30 Wood # (Auto) 0.3 (0.1-0.6) 02/03/19 06:30 Eos # (Auto) 0.0 (0.0-0.7) 02/03/19 06:30 Baso # (Auto) 0.00 K/mm3 (0.0-2.0) 02/03/19 06:30 Absolute Neuts (auto) 8.94 (1.4-6.5) H 02/03/19 06:30 Sodium 143 mmol/L (132-148) 02/03/19 06:30 Potassium 3.9 mmol/L (3.6-5.0) 02/03/19 06:30 Chloride 104 mmol/L (98-107) 02/03/19 06:30 Carbon Dioxide 28 mmol/L (21-33) 02/03/19 06:30 Anion Gap 15 (10-20) 02/03/19 06:30 BUN 19 mg/dL (7-21) 02/03/19 06:30 Creatinine 0.7 mg/dl (0.8-1.5) L 02/03/19 06:30 Est GFR ( Amer) > 60 02/03/19 06:30 Est GFR (Non-Af Amer) > 60 02/03/19 06:30 Random Glucose 141 mg/dL (70-110) H 02/03/19 06:30 Calcium 9.8 mg/dL (8.4-10.5) 02/03/19 06:30 Phosphorus 3.1 mg/dL (2.5-4.5) 02/03/19 06:30 Magnesium 2.2 mg/dL (1.7-2.2) 02/03/19 06:30 Total Bilirubin 0.5 mg/dL (0.2-1.3) 02/03/19 06:30 AST 36 U/L (17-59) 02/03/19 06:30 ALT 28 U/L (7-56) 02/03/19 06:30 Alkaline Phosphatase 106 U/L (38-126) 02/03/19 06:30 Troponin I < 0.01 ng/mL 02/02/19 21:56 Total Protein 7.8 g/dL (5.8-8.3) 02/03/19 06:30 Albumin 4.4 g/dL (3.0-4.8) 02/03/19 06:30 Globulin 3.4 gm/dL 02/03/19 06:30 Albumin/Globulin Ratio 1.3 (1.1-1.8) 02/03/19 06:30 Procalcitonin < 0.05 NG/ML (0.19-0.49) L 02/03/19 05:27 - Hospital Course Hospital Course: 63 yo M with PMH of HTN, Asthma, and seasonal allergies who [place] [facility] [place] of worsening shortness of breath and wheezing x1 week. Patient reports no relief with use of him home Pro-air inhaler, and he has not had the supplies to use his Fluticasone nebs in weeks. Patient admitted for asthma exacerbation. Patient receive dduonebs, solumedrol IV, cingulair, budesonide. Anti-HTN home meds Lisinopril and HCTZ were resumed as well. CXR notable for patchy emphysematous cystic-like changes. High res Chest CT showed ground-glass infiltrate/scar on left pleural surface, lungs clear. No leukocytosis, afebrile, no other symptoms suggestive of infectious etiology. Patient got better with treatment with clinical improvement of his symptoms and signs. He was afebrile and clinically stable for discharge home today. Additional instructions as below. Discharge Exam - Head Exam Head Exam: ATRAUMATIC, NORMAL INSPECTION, NORMOCEPHALIC - Eye Exam Eye Exam: EOMI, Normal appearance, PERRL Pupil Exam: NORMAL ACCOMODATION, PERRL - ENT Exam ENT Exam: Mucous Membranes Moist - Respiratory Exam Respiratory Exam: Clear to PA & Lateral, NORMAL BREATHING PATTERN - Cardiovascular Exam Cardiovascular Exam: REGULAR RHYTHM, +S1, +S2 - GI/Abdominal Exam GI & Abdominal Exam: Normal Bowel Sounds, Soft - Back Exam Back exam: FULL ROM - Neurological Exam Neurological exam: Alert, CN II-XII Intact, Normal Gait, Oriented x3, Reflexes Normal - Psychiatric Exam Psychiatric exam: Normal Affect, Normal Mood - Skin Skin Exam: Dry, Intact, Normal Color, Warm Discharge Plan - Discharge Medications Prescriptions: Fluticasone Propionate [Flovent Hfa] 2 puff IH BID #5 unit Loratadine [Claritin] 10 mg PO DAILY #30 tab Methylprednisolone [Medrol Dose Pack (21 tabs)] 4 mg PO DAILY #21 mg Montelukast [Singulair] 10 mg PO HS #30 tab - Follow Up Plan Condition: FAIR Disposition: HOME/ ROUTINE Instructions: Avoiding Asthma Triggers, Asthma Action Plan, Asthma (GEN) Additional Instructions: Follow up with your primary care doctor Kyler within 3-5 days. Follow up with CAT scan chest results with Dr Chávez and ask for a referral for a lung doctor for evaluation of it. You are given a copy of your CAT scan and laboratory work results done in the hospital. Follow up with a lung doctor in 1-2 weeks, regarding appropriate diagnosis and management of your asthma. Start taking fluticasone, claritin, singulair. Also, take the medrol dose pack. Please use mask as necessary when in areas that can exacerbate your asthma. Resume your other home medications as given. Return to the emergency room for any new or concerning symptoms. Referrals: Kulwinder Chávez APN [Primary Care Provider] - <Bennett Hinds - Last Filed: 02/03/19 18:33> Provider - Provider Date of Admission: 02/02/19 07:37 Attending physician: Bennett Hinds MD Primary care physician: Kulwinder Chávez [facility] Course - Lab Results Lab Results: Most Recent Lab Values WBC 10.3 10^3/uL (4.5-11.0) 02/03/19 06:30 RBC 5.19 10^6/uL (3.5-6.1) 02/03/19 06:30 Hgb 14.6 g/dL (14.0-18.0) 02/03/19 06:30 Hct 44.2 % (42.0-52.0) 02/03/19 06:30 MCV 85.2 fl (80.0-105.0) 02/03/19 06:30 MCH 28.1 pg (25.0-35.0) 02/03/19 06:30 MCHC 33.0 g/dl (31.0-37.0) 02/03/19 06:30 RDW 13.2 % (11.5-14.5) 02/03/19 06:30 Plt Count 288 10^3/uL (120.0-450.0) 02/03/19 06:30 MPV 10.4 fl (7.0-11.0) 02/03/19 06:30 Neut % (Auto) 86.6 % (50.0-68.0) H 02/03/19 06:30 Lymph % (Auto) 10.4 % (22.0-35.0) L 02/03/19 06:30 Wood % (Auto) 3.0 % (1.0-6.0) 02/03/19 06:30 Eos % (Auto) 0.0 % (1.5-5.0) L 02/03/19 06:30 Baso % (Auto) 0.0 % (0.0-3.0) 02/03/19 06:30 Lymph # (Auto) 1.1 (1.2-3.4) L 02/03/19 06:30 Wood # (Auto) 0.3 (0.1-0.6) 02/03/19 06:30 Eos # (Auto) 0.0 (0.0-0.7) 02/03/19 06:30 Baso # (Auto) 0.00 K/mm3 (0.0-2.0) 02/03/19 06:30 Absolute Neuts (auto) 8.94 (1.4-6.5) H 02/03/19 06:30 Sodium 143 mmol/L (132-148) 02/03/19 06:30 Potassium 3.9 mmol/L (3.6-5.0) 02/03/19 06:30 Chloride 104 mmol/L (98-107) 02/03/19 06:30 Carbon Dioxide 28 mmol/L (21-33) 02/03/19 06:30 Anion Gap 15 (10-20) 02/03/19 06:30 BUN 19 mg/dL (7-21) 02/03/19 06:30 Creatinine 0.7 mg/dl (0.8-1.5) L 02/03/19 06:30 Est GFR ( Amer) > 60 02/03/19 06:30 Est GFR (Non-Af Amer) > 60 02/03/19 06:30 Random Glucose 141 mg/dL (70-110) H 02/03/19 06:30 Calcium 9.8 mg/dL (8.4-10.5) 02/03/19 06:30 Phosphorus 3.1 mg/dL (2.5-4.5) 02/03/19 06:30 Magnesium 2.2 mg/dL (1.7-2.2) 02/03/19 06:30 Total Bilirubin 0.5 mg/dL (0.2-1.3) 02/03/19 06:30 AST 36 U/L (17-59) 02/03/19 06:30 ALT 28 U/L (7-56) 02/03/19 06:30 Alkaline Phosphatase 106 U/L (38-126) 02/03/19 06:30 Troponin I < 0.01 ng/mL 02/02/19 21:56 Total Protein 7.8 g/dL (5.8-8.3) 02/03/19 06:30 Albumin 4.4 g/dL (3.0-4.8) 02/03/19 06:30 Globulin 3.4 gm/dL 02/03/19 06:30 Albumin/Globulin Ratio 1.3 (1.1-1.8) 02/03/19 06:30 Procalcitonin < 0.05 NG/ML (0.19-0.49) L 02/03/19 05:27 Attending/Attestation - Attestation I have personally seen and examined this patient.: Yes I have fully participated in the care of the patient.: Yes I have reviewed all pertinent clinical information, including history, physical exam and plan: Yes Notes (Text): 02/03/19 18:32 Attending note; Patient seen and examined with resident. Patient is alert and awake. Complaining of cough and mild shortness of breath. Patient has nasal congestion. Denies any fevers, chills. Patient is ambulating with physical therapy. Patient is a 63-year-old male with PMH of HTN, Asthma, and seasonal allergies who [place] [facility] [place] of worsening shortness of breath and wheezing x1 week. 1. Acute asthma exacerbation; patient has significant allergic component. on IV Solu-Medrol, DuoNeb and Pulmicort. Monitor oxygen saturation closely. Chest x-ray showed mild cystic changes. High-resolution CT is negative for any acut Bronchiectasis. 2. Hypertension; continue hydro-thiazide and lisinopril. 3. Seasonal allergies; continue cetirizine and Singulair. 4. History of polypectomy; Follow-up with ENT closely. Patient will be monitored closely. Patient is strongly advised to Avoid allergens up with pulmonary as outpatient. Discharge home today. Upon discharge the patient will follow up with PMD Dr. Chávez.
--- NOTE | 2019-02-03 19:52 | CARD ---
APPROVED REPORT Date of service: 02/03/2019 EKG Measurement Heart [id number] <Conclusion> Normal sinus rhythm RSR' or QR pattern in V1 suggests right ventricular conduction delay Borderline ECG
== END 2019-02-03 16:33 | disposition home or self-care (01) ==
LOC: ED 05:57 → ERH 07:37 → 5RNO 09:42
PROVIDERS: ADMIT Internal Medicine; ATTEND Internal Medicine
DX: J45.901 Unspecified asthma with (acute) exacerbation (principal); I10 Essential (primary) hypertension; Z79.51 Long term (current) use of inhaled steroids; Z79.899 Other long term (current) drug therapy
CPT/HCPCS: 36415; 71045; 71250; 80053; 83735; 84100; 84145; 84484; 85025; 93005; 94640; 96374; 96376; 97116; 97161; 99283; G0378; G8978; G8979; G8980; J2920; J2930